=== PATIENT | male | born 1990 | race African-American/Black ===

== ENCOUNTER 2017-01-19 22:34 | Emergency (ER) | payer SELFPAY ==
[~2017-01-19] VITALS: Ht 177.8 cm; Wt 97.5 kg
[~2017-01-19 22:34] MED LIST: CEFP100T PO; HYDR-971 PO; PRED-299 PO; PRED50TA PO; PROAIR HFA8.5 GM IH; PROAIR HFA8.5 GM INH
[2017-01-19] MEDS ORDERED: PREDNISONE 20 MG TABLET PO ONE (23:30)
[2017-01-19] MEDS ORDERED: IPRATRPIUM/ALBUTEROL 0.5/2.5MG 3 ML NEBU. NEB ONE (23:30)
[2017-01-19 23:39] LABS: OBC FLU VALID
[2017-01-19] MEDS ORDERED: IBUP-1007 PO (23:41)
[2017-01-19] MEDS ORDERED: PRED50TA PO (23:41)
--- NOTE | 2017-01-19 23:41 | PHYS DOC ---
Past Medical History Past Medical History: Asthma Past Surgical History: No Surgical History Additional Past Surgical Histo: circumsision Alcohol Use: None Drug Use: None Adult General Chief Complaint Chief Complaint: ASTHMA HPI HPI Patient is a 26 year old gentleman with a history significant for asthma presents here today complaining of shortness of breath for 2 days. Patient denies any fevers shaking chills. Patient has no nausea vomiting or diarrhea. Patient reports she's had a nonproductive cough for the last 2-3 days. Patient has any history of hypertension diabetes liver or kidney problems. Patient does not smoke drink or do any drugs. Patient reports she has an allergy to shellfish. Patient denies any sore throat or ear pain. Patient reports she's had nasal congestion and rhinorrhea. Patient reports using his albuterol MDI at home with some relief. Patient's physical exam is remarkable for some mild expiratory wheezing in the ED. Patient does not appear to be in any respiratory distress. Patient is not tachypneic. Patient is able speak in full sentences. Patient has no evidence of cyanosis or hypoxia. Patient's pulse ox upon presentation to the ER was 99%. Patient's chest x-ray revealed a normal heart size with no infiltrates or effusions. Patient was given albuterol treatment in the ED and will get started on prednisone. Review of Systems Review of Systems Constitutional: Denies fever or chills [] Eyes: Denies change in visual acuity, redness, or eye pain [] HENT: Denies nasal congestion or sore throat [] All other review systems are negative except as documented in the history of present illness portion Current Medications Current Medications Current Medications Medications (Trade) Dose Ordered Sig/Hanh Start Time Stop Time Status Last Admin Dose Admin Albuterol/ Ipratropium (Duoneb) 3 ml 1X ONCE 01/19/17 23:30 01/19/17 23:31 DC 01/19/17 23:19 3 ML Prednisone (Prednisone) 40 mg 1X ONCE 01/19/17 23:30 01/19/17 23:31 DC 01/19/17 23:12 40 MG Allergies Allergies Allergies Coded Allergies Type Severity Reaction Last Updated Verified shellfish derived Allergy Severe Anaphylaxis 08/22/14 Yes Physical Exam Physical Exam Constitutional: Well developed, well nourished, no acute distress, non-toxic appearance. [] HENT: Normocephalic, atraumatic, bilateral external ears normal, oropharynx moist, no oral exudates, nose normal. [] Eyes: PERRLA, EOMI, conjunctiva normal, no discharge. [] Neck: Normal range of motion, no tenderness, supple, no stridor. [] Cardiovascular:Heart rate regular rhythm, no murmur [] Lungs & Thorax: Bilateral breath sounds mild expiratory wheezing. Abdomen: Bowel sounds normal, soft, no tenderness, no masses, no pulsatile masses. [] Skin: Warm, dry, no erythema, no rash. [] Back: No tenderness, no CVA tenderness. [] Extremities: No tenderness, no cyanosis, no clubbing, ROM intact, no edema. [] Neurologic: Alert and oriented X 3, normal motor function, normal sensory function, no focal deficits noted. [] Psychologic: Affect normal, judgement normal, mood normal. [] Current Patient Data Vital Signs Vital Signs Date Time Temp Pulse Resp B/P Pulse Ox O2 Delivery O2 Flow Rate FiO2 01/20/17 00:16 80 20 156/103 98 Room Air 01/19/17 22:47 97.6 97.6 Lab Values Laboratory Tests Test 01/19/17 23:12 Influenza Type A Antigen Negative (NEGATIVE) Influenza Type B Antigen Negative (NEGATIVE) EKG EKG [] Radiology/Procedures Radiology/Procedures [] Course & Med Decision Making Course & Med Decision Making Pertinent Labs and Imaging studies reviewed. (See chart for details) [] Dragon Disclaimer Dragon Disclaimer This electronic medical record was generated, in whole or in part, using a voice recognition dictation system. Departure Departure Impression: Primary Impression: Asthma exacerbation Additional Impression: Upper respiratory tract infection Disposition: 01 HOME, SELF-CARE Condition: IMPROVED Referrals: NO PCP (PCP) Patient Instructions: Asthma, Adult, Upper Respiratory Infection, Adult Scripts Prednisone 50 Mg Tablet1 Tab PO DAILY #5 TAB Prov:CRISTO LOPEZ MD 01/19/17 Ibuprofen 600 Mg [id number] Mg PO PRN Q6HRS PRN INFLAMMATION #20 TAB Prov:CRISTO LOPEZ MD 01/19/17 Problem Qualifiers CRISTO LOPEZ MD Jan 19, 2017 23:41
[2017-01-20 00:16] VITALS: BP 156/103
--- NOTE | 2017-01-20 08:13 | RAD ---
Indication cough. PA and lateral views of the chest were obtained and are compared to an examination 06/04/2016. The heart and pulmonary vessels are normal. The lungs are clear. There has not been a a significant change relative to the previous exam. IMPRESSION: No acute finding. No significant change
== END 2017-01-20 00:16 | disposition home or self-care (01) ==
LOC: ER 22:34
DX: J45.901 Unspecified asthma with (acute) exacerbation (principal); Z91.013 Allergy to seafood
CPT/HCPCS: 71020; 87804; 94250; 94640; 99285; J7512; J7620

== ENCOUNTER 2017-10-30 18:56 | Emergency (ER) | payer SELFPAY ==
[~2017-10-30] VITALS: Ht 177.8 cm; Wt 104.3 kg
[~2017-10-30 18:56] MED LIST changes: +IBUP-1007 PO
[2017-10-30 19:08] VITALS: BP 152/93
--- NOTE | 2017-10-30 19:11 | PHYS DOC ---
Past Medical History Past Medical History: Asthma Past Surgical History: No Surgical History Additional Past Surgical Histo: circumsision Alcohol Use: None Drug Use: None Adult General Chief Complaint Chief Complaint: ASTHMA HPI HPI Patient is a 27 year old male presents to the emergency department one-week history of asthma exacerbation. He states he was using albuterol at home but today ran out of the albuterol. He has no fever. Review of Systems Review of Systems Constitutional: Denies fever or chills [] Eyes: Denies change in visual acuity, redness, or eye pain [] HENT: Denies nasal congestion or sore throat [] Respiratory: Cough with wheezing Cardiovascular: No additional information not addressed in HPI [] GI: Denies abdominal pain, nausea, vomiting, bloody stools or diarrhea [] : Denies dysuria or hematuria [] Musculoskeletal: Denies back pain or joint pain [] Integument: Denies rash or skin lesions [] Neurologic: Denies headache, focal weakness or sensory changes [] Endocrine: Denies polyuria or polydipsia [] All other systems were reviewed and found to be within normal limits, except as documented in this note. Current Medications Current Medications Current Medications Medications (Trade) Dose Ordered Sig/Hanh Start Time Stop Time Status Last Admin Dose Admin Acetaminophen (Tylenol) 500 mg 1X ONCE 10/30/17 20:00 10/30/17 20:01 10/30/17 19:31 500 MG Albuterol/ Ipratropium (Duoneb) 3 ml 1X ONCE 10/30/17 20:00 10/30/17 20:01 Prednisone (Prednisone) 50 mg 1X ONCE 10/30/17 19:30 10/30/17 19:31 DC 10/30/17 19:24 50 MG Allergies Allergies Allergies Coded Allergies Type Severity Reaction Last Updated Verified shellfish derived Allergy Severe Anaphylaxis 08/22/14 Yes Physical Exam Physical Exam Constitutional: Well developed, well nourished, no acute distress, non-toxic appearance. [] HENT: Normocephalic, atraumatic, bilateral external ears normal, bilateral tympanic membranes with effusion, oropharynx moist, no oral exudates, nose normal. [] Neck: Normal range of motion, no tenderness, supple, no stridor. [] Cardiovascular:Heart rate regular rhythm, no murmur [] Lungs & Thorax: Breath sounds diminished with scattered inspiratory wheezing. No retractions.Scattered inspiratory wheezing Abdomen: Bowel sounds normal, soft, no tenderness, no masses, no pulsatile masses. [] Extremities: No tenderness, no cyanosis, no clubbing, ROM intact, no edema. [] Neurologic: Alert and oriented X 3, normal motor function, normal sensory function, no focal deficits noted. [] Psychologic: Affect normal, judgement normal, mood normal. [] Current Patient Data Vital Signs Vital Signs Date Time Temp Pulse Resp B/P (MAP) Pulse Ox O2 Delivery O2 Flow Rate FiO2 10/30/17 19:38 93 Room Air 10/30/17 19:08 97.7 94 18 97.7 EKG EKG [] Radiology/Procedures Radiology/Procedures [] Course & Med Decision Making Course & Med Decision Making Pertinent Labs and Imaging studies reviewed. (See chart for details) []Patient received 1 DuoNeb treatment in the emergency department. Breath sounds clear to auscultate throughout, patient reports resolution of symptoms. Dragon Disclaimer Dragon Disclaimer This electronic medical record was generated, in whole or in part, using a voice recognition dictation system. Departure Departure Impression: Primary Impression: Asthma exacerbation Disposition: HOME, SELF-CARE Condition: STABLE Referrals: NO PCP (PCP) [facility] Patient Instructions: Asthma, Adult Scripts Prednisone (PREDNISONE) 50 Mg Tablet 1 TAB PO DAILY, #4 TAB Start 10-31-2017 Prov: NOHELIA AGUIRRE APRN 10/30/17 Albuterol Sulfate (PROAIR HFA INHALER) 8.5 Gm Hfa.aer.ad 1 PUFF INH PRN Q6HRS Y for SHORTNESS OF BREATH, #1 INHALER 0 Refills Prov: NOHELIA AGUIRRE APRN 10/30/17 Ipratropium/Albuterol Sulfate (DUONEB 0.5-3(2.5) MG/3 ML) 3 Ml Ampul.neb 3 ML NEB QID, #25 EACH Prov: NOHELIA AGUIRRE APRN 10/30/17 Problem Qualifiers Primary Impression: Asthma exacerbation Asthma severity: mild Asthma persistence: intermittent Qualified Codes: J45.21 - Mild intermittent asthma with (acute) exacerbation NOHELIA AGUIRRE APRN Oct 30, 2017 19:11
[2017-10-30] MEDS ORDERED: predniSONE 10 MG TABLET PO ONE (19:30)
[2017-10-30] MEDS ORDERED: PROAIR HFA8.5 GM INH (19:55)
[2017-10-30] MEDS ORDERED: IPRA3AMP NEB (19:55)
[2017-10-30] MEDS ORDERED: PRED50TA PO (19:55)
[2017-10-30] MEDS ORDERED: ACETAMINOPHEN 500 MG TABLET PO ONE (20:00)
[2017-10-30] MEDS ORDERED: IPRATRPIUM/ALBUTEROL 0.5/2.5MG 3 ML NEBU. NEB ONE (20:00)
== END 2017-10-30 20:03 | disposition home or self-care (01) ==
LOC: ER 18:56
DX: J45.21 Mild intermittent asthma with (acute) exacerbation (principal); Z91.013 Allergy to seafood; Z79.899 Other long term (current) drug therapy
CPT/HCPCS: 94250; 94640; 99283; J7512

== ENCOUNTER 2018-02-26 07:06 | Emergency (ER) | payer SELFPAY ==
[2018-02-26] MEDS: IPRATRPIUM/ALBUTEROL 0.5/2.5MG 3 ML NEBU. NEB (07:21)
[2018-02-26] MEDS: methylPREDNISolone SOD SUCC PF 125 MG/2 ML VIAL. IV (07:26)
[2018-02-26] MEDS: ALBUTEROL SULFATE 2.5 MG/3 ML NEBU. NEB (08:22)
== END 2018-02-26 09:52 | disposition home or self-care (01) ==
LOC: ER 07:06
DX: J45.21 Mild intermittent asthma with (acute) exacerbation (principal); Z79.899 Other long term (current) drug therapy
CPT/HCPCS: 94640; 96374; 99284-25; J2930; J7613; J7620

== ENCOUNTER 2018-06-04 20:09 | Emergency (ER) | payer SELFPAY ==
[2018-06-04 20:25] LABS: ADD MAN DIFF? NO
[2018-06-04 20:29] LABS: BASO % 1 % (0-3); EOS # 0.4 x10^3/uL (0.0-0.7); EOS % 7 % (0-3); HEMATOCRIT 45.1 % (39.0-53.0); HEMOGLOBIN 15.5 g/dL (13.0-17.5); LYMPH % 33 % (24-48); MEAN CORPUSCULAR HEMOGLOBIN 30 pg (25-35); MEAN CORPUSCULAR HGB CONC 34 g/dL (31-37); MEAN CORPUSCULAR VOLUME 87 fL (79-100); MONO # 0.7 x10^3/uL (0.0-1.1); MONO % 11 % (0-9); NEUT # 3.1 x10^3uL (1.8-7.7); NEUT % 49 % (31-73); PLATELET COUNT 232 x10^3/uL (140-400); RED BLOOD COUNT 5.17 x10^6/uL (4.30-5.70); RED CELL DISTRIBUTION WIDTH 12.9 % (11.5-14.5); WHITE BLOOD COUNT 6.2 x10^3/uL (4.0-11.0)
[2018-06-04] MEDS: IPRATRPIUM/ALBUTEROL 0.5/2.5MG 3 ML NEBU. NEB (20:34)
[2018-06-04] MEDS: methylPREDNISolone SOD SUCC PF 125 MG/2 ML VIAL. IV (20:37)
[2018-06-04] MEDS: IV NORMAL SALINE 1000ML BAG 1,000 ML IV ×2 (20:37→21:34)
[2018-06-04] MEDS: KETOROLAC 30 MG/ML INJ. IV (20:38)
[2018-06-04 20:39] LABS: ANION GAP 6 (6-14); BLOOD UREA NITROGEN 14 mg/dL (8-26); BUN/CREATININE RATIO 8 (6-20); CALCIUM 8.5 mg/dL (8.5-10.1); CARBON DIOXIDE 24 mmol/L (21-32); CHLORIDE 103 mmol/L (98-107); CREATININE 1.7 mg/dL (0.7-1.3); GFR 57.9; GLUCOSE 122 mg/dL (70-99); POTASSIUM 3.7 mmol/L (3.5-5.1); SODIUM 133 mmol/L (136-145)
[2018-06-04 20:45] LABS: ALBUMIN/GLOBULIN RATIO 1.1 (1.0-1.7); ALK PHOS 66 U/L (46-116); ALT (SGPT) 42 U/L (16-63); AST (SGOT) 20 U/L (15-37); TOTAL BILIRUBIN 0.5 mg/dL (0.2-1.0); TOTAL PROTEIN 7.6 g/dL (6.4-8.2)
[2018-06-04 20:50] LABS: TROPONINI < 0.017 ng/mL (0.000-0.055)
[2018-06-04 20:52] LABS: CKMB INDEX 0.1 % (0-4); CKMB MASS 0.9 ng/mL (0.0-3.6); CREATINE KINASE 787 U/L (39-308)
[2018-06-04] MEDS: ACETAMINOPHEN/CODEINE 300/30MG TABLET. PO (21:50)
== END 2018-06-04 22:22 | disposition home or self-care (01) ==
LOC: ER 20:09
DX: J45.901 Unspecified asthma with (acute) exacerbation (principal); R07.89 Other chest pain; Z87.891 Personal history of nicotine dependence; Z91.013 Allergy to seafood
CPT/HCPCS: 36415; 71046; 80053; 82553; 84484; 85025; 85379; 93005; 94640; 96361; 96374; 96375; 99285-25; J1885; J2930; J7030; J7620